=== PATIENT | male | born 1975 | race Caucasian/White ===

== ENCOUNTER 2016-10-11 00:20 | Emergency (ER) | payer SELFPAY | END 2016-10-11 02:00 | disposition home or self-care (01) | LOC: ER1 00:20 | DX: T15.02XA Foreign body in cornea, left eye, initial encounter (principal); X58.XXXA Exposure to other specified factors, initial encounter; Y93.89 Activity, other specified; Y92.89 Other specified places as the place of occurrence of the external cause; Y99.0 Civilian activity done for income or pay | CPT/HCPCS: 65220; 99283 ==

== ENCOUNTER 2021-01-19 08:49 | Emergency (ER) | payer SELFPAY ==
[2021-01-19] MEDS ORDERED: FLAGYL500 MG PO (09:01)
[2021-01-21 23:11] LABS: CHLAMYDIA TRACHOMATIS, NAA Negative (Negative); NEISSERIA GONORRHOEAE, NAA Negative (Negative)
== END 2021-01-19 09:11 | disposition home or self-care (01) ==
LOC: ER1 08:49
PROVIDERS: Physician Assistant
DX: Z20.2 Contact with and (suspected) exposure to infections with a predominantly sexual mode of transmission (principal); Z90.49 Acquired absence of other specified parts of digestive tract
CPT/HCPCS: 99283